=== PATIENT | female | born 1955 | race Caucasian/White ===

== ENCOUNTER 2021-01-03 14:43 | Emergency (ER) | payer BC ==
[2021-01-03] MEDS ORDERED: Morphine 2 MG/ML SYRINGE IM ONE (15:27)
[2021-01-03] MEDS ORDERED: Ondansetron 4 MG Tab.DIS PO ONE (15:27)
--- NOTE | 2021-01-03 15:30 | EDM.PDOC ---
ED HPI GENERAL MEDICAL PROBLEM - General Chief Complaint: Upper Extremity Injury/Pain Stated Complaint: FELL AND HURT RT WRIST Time Seen by Provider: 01/03/21 15:13 Source of Information: Reports: Patient History Limitations: Reports: No Limitations - History of Present Illness INITIAL COMMENTS - FREE TEXT/NARRATIVE: 65 yo presents to ER following injury to right wrist. she fell onto out stretched arm. deformity to wrist. generally healthy - Related Data Allergies Allergy/AdvReac Type Severity Reaction Status Date / Time Latex, Natural Rubber Allergy Hives Verified 01/03/21 15:12 metronidazole [From Flagyl] Allergy Hives Verified 01/03/21 15:12 Penicillins Allergy Facial Verified 01/03/21 15:12 Swelling tetracycline Allergy Vomiting Verified 01/03/21 15:12 Home Meds: Home Meds Formoterol/Mometasone [Dulera 100 MCG/5 MCG] 01/03/21 [History] PARoxetine [Paxil] 01/03/21 [History] Past Medical History Cardiovascular History: Reports: Heart Murmur Respiratory History: Reports: Asthma Musculoskeletal History: Reports: Neck Pain, Chronic - Past Surgical History Female Surgical History: Reports: Hysterectomy Review of Systems - Review of Systems Review Of Systems: See Below Constitutional: Denies: Fever Respiratory: Denies: Shortness of Breath, Wheezing Cardiovascular: Denies: Chest Pain Musculoskeletal: Reports: Joint Pain, Joint Swelling ED EXAM, GENERAL - Physical Exam Exam: See Below Exam Limited By: No Limitations General Appearance: Alert, WD/WN, No Apparent Distress Respiratory/Chest: No Respiratory Distress, Lungs Clear, Normal Breath Sounds, No Accessory Muscle Use, Chest Non-Tender. No: Crackles, Rhonchi, Wheezing Cardiovascular: Normal Peripheral Pulses, Regular Rate, Rhythm Extremities: Joint Swelling, Arm Pain, Other (right wrist deformity CMS distil to injury intact) ED TRAUMA EXTREMITY PROCEDURES - Additional/Other Procedure(s) Other (Free Text) Procedure(s): fracture reduction of distal radius. completed with the assistance of Dr. Narvaez. Dr. aNrvaez monitored airway. pressure and traction used to align radius, splinting completed. pt tolerated procedure without difficulty. Course - Vital Signs Last Recorded V/S: Last Vital Signs Temp 36.5 C 01/03/21 15:21 Pulse 71 01/03/21 15:21 Resp 16 01/03/21 15:21 BP 109/65 01/03/21 15:21 Pulse Ox 97 01/03/21 15:21 - Orders/Labs/Meds Orders: Active Orders 24 hr Category Date Time Status Wrist 2V Rt [CR] Stat Exams 01/03/21 17:12 Ordered Wrist Comp Min 3V Rt [CR] Stat Exams 01/03/21 15:28 Taken Meds: Medications Discontinued Medications Generic Name Dose Route Start Last Admin Trade Name Frechuck PRN Reason Stop Dose Admin Morphine Sulfate 1 mg 01/03/21 15:27 01/03/21 15:56 Morphine 2 Mg/Ml Syringe IM 01/03/21 15:28 1 mg ONETIME ONE Administration Morphine Sulfate Confirm 01/03/21 17:11 Morphine 2 Mg/Ml Syringe Administered 01/03/21 17:12 Dose 2 mg .ROUTE .STK-MED ONE Morphine Sulfate 1 mg 01/03/21 17:27 Morphine 2 Mg/Ml Syringe IVPUSH 01/03/21 17:28 ONETIME ONE Ondansetron HCl 4 mg 01/03/21 15:27 01/03/21 15:56 Ondansetron 4 Mg Tab.Dis PO 01/03/21 15:28 4 mg ONETIME ONE Administration Ondansetron HCl Confirm 01/03/21 15:41 Ondansetron 4 Mg Tab.Dis Administered 01/03/21 15:42 Dose 4 mg .ROUTE .STK-MED ONE Propofol 60 mg 01/03/21 16:43 Propofol 200 Mg/20 Ml Sdv IVPUSH 01/03/21 16:44 ONETIME ONE Propofol 100 mg 01/03/21 17:27 Propofol 200 Mg/20 Ml Sdv IVPUSH 01/03/21 17:28 ONETIME ONE - Re-Assessments/Exams Free Text/Narrative Re-Assessment/Exam: 01/03/21 17:33 reduction and splinting completed. pt tolerated well. will discharge with plans to follow-up ortho in home area mid next week Departure - Departure Time of Disposition: 17:34 Disposition: Home, Self-Care 01 Condition: Good Clinical Impression: Fracture of radius Qualifiers: Encounter type: initial encounter Radius location: distal Fracture type: closed Fracture morphology: other fracture Laterality: right Qualified Code(s): S52.591A - Other fractures of lower end of right radius, initial encounter for closed fracture - Discharge Information *PRESCRIPTION DRUG MONITORING PROGRAM REVIEWED*: Not Applicable *COPY OF PRESCRIPTION DRUG MONITORING REPORT IN PATIENT GREGORIO: Not Applicable Instructions: Radial Head Fracture, [id number] Referrals: PCP,None [Primary Care Provider] - Forms: ED Department Discharge Additional Instructions: [place] 5/325 0.5-1 tablet every 8 hours for severe pain increase fiber to avoid constipation opioid pain control can cause constipation ice fingers and elevate follow up mid week with orthopedics Sepsis Event Note (ED) - Evaluation Sepsis Screening Result: No Definite Risk - Focused Exam Vital Signs: Vital Signs Temp Pulse Resp BP Pulse Ox 01/03/21 15:21 36.5 C 71 16 109/65 97 01/03/21 15:08 36.5 C 71 16 109/65 97 - My Orders Last 24 Hours: My Active Orders 01/03/21 15:28 Wrist Comp Min 3V Rt [CR] Stat - Assessment/Plan Last 24 Hours: My Active Orders 01/03/21 15:28 Wrist Comp Min 3V Rt [CR] Stat
[2021-01-03] MEDS ORDERED: Ondansetron 4 MG Tab.DIS ONE (15:41)
[2021-01-03] MEDS ORDERED: Propofol 200 MG/20 ML SDV IVPUSH ONE ×2 (16:43→17:27)
[2021-01-03] MEDS ORDERED: Morphine 2 MG/ML SYRINGE ONE (17:11)
[2021-01-03] MEDS ORDERED: Morphine 2 MG/ML SYRINGE IVPUSH ONE (17:27)
--- NOTE | 2021-01-06 09:38 | CR ---
Wrist Comp Min 3V Rt CLINICAL HISTORY: Trauma FINDINGS: There is a comminuted displaced fracture of the distal radius. There is some abutment of the distal ulna and the proximal carpal row. There is widening of the scapholunate joint. There is some deformity of the scaphoid which may be positional. Impression: Fracture distal radius Widening of scapholunate joint Questionable deformity of the scaphoid Ulnar abutment
--- NOTE | 2021-01-06 09:51 | CR ---
Wrist 2V Rt CLINICAL HISTORY: Postreduction FINDINGS: There is partial reduction of a distal displaced comminuted radial fracture. There is deformity of the scaphoid suggesting previous fracture. Chronology is uncertain. IMPRESSION: Partial reduction of distal radial fracture Probable fractured scaphoid
== END 2021-01-03 18:30 | disposition home or self-care (01) ==
LOC: JP.ED 14:43
DX: S52.591A Other fractures of lower end of right radius, initial encounter for closed fracture (principal); Z88.0 Allergy status to penicillin; Z91.040 Latex allergy status; Z88.1 Allergy status to other antibiotic agents; W18.39XA Other fall on same level, initial encounter
CPT/HCPCS: 25565; 73100; 73110; 96372; 96374; 99283; A9270; J2270; J2704